=== PATIENT | female | born 1975 | race Caucasian/White ===

== ENCOUNTER 2017-10-10 08:36 | Emergency (ER) | payer OTHER ==
[2017-10-10 08:44] VITALS: BP 120/78
--- NOTE | 2017-10-10 08:59 | EDPHY ---
H & P Time Seen by Provider: 10/10/17 08:47 HPI/ROS: HPI Right hand laceration. 42-year-old female. She is right-hand dominant. She comes from work. She reports that she was trying to change out a paper towel machine when she caught the dorsal aspect of her right hand just proximal to the MCP joint of the index finger on a part of this machine and sustained a small linear non gaping laceration. She has had a tetanus shot within the last 5 years. She denies any loss of sensation or weakness in her hand. No other complaints. ROS: Constitutional: No fever, no chills. No weakness. Skin: No rashes. As above. Neurological: No focal weakness or altered sensation. Past medical history: Asthma, allergies, knee surgery, shoulder surgery, appendectomy. Social history: Nonsmoker. No alcohol. Here by herself. . Physical Exam: General Appearance: Alert, no distress. This patient is responding to questions appropriately and in full sentences. This patient appears well- hydrated and well-nourished. Eyes: Pupils equal and round no pallor or injection. No lid edema, erythema or injection. Right hand exam: Significant for a linear non gaping laceration through the dermal layer but not through the fascia, 2 cm, just proximal to the dorsal aspect of the metacarpal phalangeal joint of the index finger. No foreign body on gross exploration. No evidence of extensor tendon injury or joint capsule involvement. The right hand and right index finger are neurovascularly intact. Neurological: Motor sensory function is grossly intact. Cranial nerves are normal. Gait is normal. Skin: Warm and dry, no rashes. As above. Extremities are symmetrical. All joints range without pain or impingement. Psychiatric: No agitation. No depression. Database: EKG: Imaging: Procedures: Procedure: Laceration repair. Verbal consent was obtained from the patient. The 2 cm laceration on the dorsal aspect right hand just proximal to the index finger MCP joint was anesthetized in the usual fashion. The wound was irrigated, draped and explored to its base with a gloved finger. There were no deep structures involved. No tendon injury was identified. No foreign body identified on gross exploration. The wound was repaired with 4, 5.0 Prolene sutures placed in interrupted fashion. The wound repair was tolerated well and there were no complications. The procedure was performed by myself. Emergency department course: Triage vital signs reviewed. After suture repair as noted above, wound care was discussed with the patient. Follow-up and return to emergency department precautions reviewed. All of her questions were answered. The patient was discharged home in good condition. Differential Diagnosis: The differential diagnosis on this patient includes but is not limited to right hand laceration. Tendon laceration, retained foreign body, significant neurovascular injury unlikely. This represents a partial list of diagnoses considered. These considerations are based on history, physical exam, past history, reassessment and diagnostic testing. Smoking Status: Never smoked Constitutional: Initial Vital Signs Temperature (C) 37.1 C 10/10/17 08:41 Heart Rate 86 10/10/17 08:41 Respiratory Rate 18 10/10/17 08:41 Blood Pressure 120/78 10/10/17 08:41 O2 Sat (%) 96 10/10/17 08:41 O2 Delivery Mode Room Air Allergies/Adverse Reactions: codeine Allergy (Verified 10/10/17 08:41) doxycycline Allergy (Verified 10/10/17 08:41) latex Allergy (Verified 10/10/17 08:41) Sulfa (Sulfonamide Antibiotics) Allergy (Verified 10/10/17 08:41) theophylline [From [facility]] Allergy (Verified 10/10/17 08:40) Home Medications: Medication Instructions Recorded Control Pill 10/10/17 Departure - Departure Disposition: Home, Routine, Self-Care Clinical Impression: Hand laceration Condition: Good Instructions: Laceration (ED), Care For Your Stitches (ED) Additional Instructions: Read and follow provided instructions. Sutures to be removed in 10 days. This can be done here in the emergency department or through your primary care physician. Follow-up with your primary care physician for wound check and re-evaluation in 2-3 days. Ibuprofen dosin mg every 6 hours with meals for the next 3 days only. Take only as needed for pain. Return to the emergency department for worsening pain, discoloration, redness or swelling, drainage of pus or other serious concerns. Referrals: NONE *PRIMARY CARE P,. [Primary Care Provider] - As per Instructions
== END 2017-10-10 09:20 | disposition home or self-care (01) ==
LOC: CED 08:36
PROC: 0HQFXZZ Repair Right Hand Skin, External Approach (ICD-10-PCS; principal; 2017-10-10)
DX: S61.411A Laceration without foreign body of right hand, initial encounter (principal); W31.89XA Contact with other specified machinery, initial encounter; Y92.29 Other specified public building as the place of occurrence of the external cause; Y99.0 Civilian activity done for income or pay